=== PATIENT | female | born 1940 | race African-American/Black ===

== ENCOUNTER 2016-08-18 22:02 | Inpatient (IN) | payer MEDICARE, MEDICAID ==
[~2016-08-18] VITALS: Ht 162.6 cm; Wt 100.0 kg
[~2016-08-18 22:02] MED LIST: ALBU.5I NEB; ALEN70TA39 PO; CALC600T44 PO; CARD240C6 PO; DULE200A INH; DUONI NEB; FERR324T4 PO; FURO20 PO; GABA300C3 PO; KCL20 PO; OMEP20TA PO; OXYC1SOL5 PO; RIVA20 PO; VITA-13 PO; WALKER STANDARD; [UNRECOGNIZED DRUG - CODE] EACH EYE
[2016-08-18 22:11] VITALS: BP 112/53; PULSE 98; RESP 16; TEMP 98.2; O2SAT 89
[2016-08-18 22:52] VITALS: RESP 16; O2SAT 95
--- NOTE | 2016-08-18 23:05 | RADRPT ---
EXAM DATE/TIME: 08/18/2016 22:40 [place] COMPARISON: CHEST SINGLE AP, May 26, 2016, 14:33. INDICATIONS : Cough. MEDICAL HISTORY : Chronic obstructive pulmonary disease. Cerebrovascular disease. Hypertension. SURGICAL HISTORY : None. ENCOUNTER: Initial ACUITY: 2 days PAIN SCORE: 5/10 LOCATION: Bilateral upper chest FINDINGS: A single view of the chest demonstrates the lungs to be symmetrically aerated without evidence of mas s, infiltrate or effusion. The cardiomediastinal contours are unremarkable. Osseous structures are intact. CONCLUSION: No acute disease. Emiliano Tafoya Jr., MD on August 18, 2016 at 23:03 Board Certified Radiologist. This report was verified electronically.
[2016-08-18 23:08] LABS: ANION GAP 6 MEQ/L (5-15); AST (GOT) 99 U/L (15-37); BICARBONATE 29.2 MEQ/L (21.0-32.0); BLOOD UREA NITROGEN 10 MG/DL (7-18); CHLORIDE 104 MEQ/L (98-107); GLOMERULAR FILTRATION RATE 60 ML/MIN (>89); SODIUM (NA) 139 MEQ/L (136-145)
[2016-08-18 23:12] LABS: ALKALINE PHOSPHATASE 460 U/L (45-117); ALT (GPT) 22 U/L (10-53); HEMATOCRIT 22.6 % (35.0-46.0); MEAN CELL VOLUME 86.4 FL (80.0-100.0); MEAN CORPUSCULAR HEMOGLOBIN 28.5 PG (27.0-34.0); PLATELET COUNT 143 TH/MM3 (150-450); RED BLOOD COUNT 2.61 MIL/MM3 (4.00-5.30); RED CELL DISTRIBUTION WIDTH 17.3 % (11.6-17.2); TOTAL BILIRUBIN ADULT 2.9 MG/DL (0.2-1.0); WHITE BLOOD COUNT 8.8 TH/MM3 (4.0-11.0)
[2016-08-18 23:17] LABS: HEMO FLAGS AUTO DIFF
[2016-08-18 23:28] LABS: INTERNATIONAL NORMALIZED RATIO 1.7 RATIO; PROTHROMBIN TIME - PATIENT 19.6 SEC (9.8-11.6)
--- NOTE | 2016-08-18 23:35 | PD ---
HPI Chief Complaint: Abnormal Results Time Seen by Provider: 22:09 Travel History International Travel<30 days: No Contact w/Intl Traveler<30days: No Traveled to known affect area: No History of Present Illness HPI The patient is 75 year old female who presents to the [facility] emergency department with a history of abnormal laboratory studies noted at her local halfway earlier today. The patient was noted to have a hemoglobin of 7.1 and was sent over for evaluation and possible blood transfusion. The patient reports that she has had blood transfusions in the past. She reports that she last had a blood transfusion 3 months ago. She reports that she was previously on chemotherapy 3 months ago related to colon cancer with metastasis. The patient reports that she is currently a resident at the halfway for [facility]. She reports that she has a history of left hip fracture status post repair. The patient reports that she has shortness of breath with exertion that is chronic. The patient denies any recent fevers, cough, congestion, neck pain, chest pain, abdominal pain, vomiting, diarrhea, urinary symptoms, or neurologic symptoms. PFSH Past Medical History Narrative Medical The patient's past medical history is significant for colon cancer with metastasis, history of hyperlipidemia, COPD, DVT, history of hypertension, history of acid reflux, history of anemia. Hx Anticoagulant Therapy: Yes Arthritis: Yes (AFFECTS SHOULDERS) Asthma: Yes Autoimmune Disease: No Blood Disorders: No Anxiety: No Depression: No Heart Rhythm Problems: No Cancer: Yes (COLON CA WITH LIVER METS) Cardiovascular Problems: Yes High Cholesterol: Yes Chemotherapy: Yes (ON 05/12/16) Chest Pain: Yes Congestive Heart Failure: No COPD: Yes Cerebrovascular Accident: No Diabetes: No Diminished Hearing: No Endocrine: Yes Gastrointestinal Disorders: Yes (ACID REFLUX) GERD: Yes Glaucoma: No Genitourinary: No Headaches: No Hepatitis: No Hiatal Hernia: No Hypertension: Yes Immune Disorder: No Implanted Vascular Access Dvce: Yes (RIGHT SIDED POWER PORT) Kidney Stones: No Musculoskeletal: Yes (ARTHRITIS) Neurologic: No Psychiatric: No Reproductive: No Respiratory: Yes (COPD) Immunizations Current: No (2012 FLU/PNEUMONIA 6 YEARS "THEY WON'T GIVE IT TO ME ") Migraines: No Myocardial Infarction: No Radiation Therapy: No Renal Failure: No Seizures: No Sickle Cell Disease: No Sleep Apnea: Yes (USES CPAP @ HOME) Thyroid Disease: Yes Ulcer: No Tetanus Vaccination: < 5 Years Influenza Vaccination: No ?: Not Menopausal: Yes Past Surgical History Narrative Surgical The patient's past surgical history is significant for Blpdax-q-Mnad placement, cardiac stent placement, partial colon resection, hysterectomy Abdominal Surgery: Yes (PARTIAL HYSTERECTOMY) AICD: No Appendectomy: No Arteriovenous Shunt: No Body Medical Devices: CARDIAC STENTS Cardiac Surgery: Yes (CARDIAC CATH) Cholecystectomy: No Ear Surgery: No Endocrine Surgery: No Eye Surgery: No Genitourinary Surgery: No Gynecologic Surgery: Yes (HYSTERECTOMY;BILATERAL SALPINGO-OOPHORECTOMY) Hysterectomy: Yes Insulin Pump: No Joint Replacement: No Oral Surgery: Yes (CROWNS,WISDOM TEETH REMOVED) Pacemaker: No Thoracic Surgery: Yes Other Surgery: Yes (HAD POLYPECTOMY WITH COLONOSCOPY ) Social History Alcohol Use: Yes (WINE OCC.) Tobacco Use: No Substance Use: No Allergies-Medications (Allergen,Severity, Reaction): Coded Allergies: No Known Allergies (Unverified , 08/18/16) Reported Meds & Prescriptions Reported Meds & Active Scripts Active Reported Oxycodone-Acetaminophen 10-325 mg Tab 1 Tab PO Q4H PRN Xarelto (Rivaroxaban) 20 Mg Tab 20 Mg PO DAILY Neurontin (Gabapentin) 300 Mg Cap 300 Mg PO TID Diltiazem CD 24 HR 240 Mg Caper 240 Mg PO DAILY Potassium Chloride ER (Potassium Chloride) 20 Meq Tab 20 Meq PO DAILY Lasix (Furosemide) 20 Mg Tab 20 Mg PO BID Multivitamin Adults (Multiple Vitamins W/ Minerals) 1 Tab 1 Tab PO DAILY Zantac (Ranitidine HCl) 150 Mg Tab 150 Mg PO BID Omeprazole 20 Mg Tab 20 Mg PO DAILY Poly-Iron 150 (Polysaccharide Iron Complex) 150 Mg Cap 150 Mg PO DAILY Review of Systems Except as stated in HPI: all other systems reviewed are Neg General / Constitutional: No: Fever Eyes: No: Visual changes HENT: No: Headaches Cardiovascular: Positive: Dyspnea on exertion, No: Chest Pain or Discomfort Respiratory: Positive: Shortness of Breath Gastrointestinal: No: Abdominal Pain Genitourinary: No: Dysuria Musculoskeletal: No: Pain Skin: No Rash Neurologic: No: Weakness Psychiatric: No: Depression Endocrine: No: Polydipsia Hematologic/Lymphatic: No: Easy Bruising Physical Exam Narrative General: The patient is a well-developed well-nourished female in no acute distress. Head and Neck exam: Head is normocephalic atraumatic. Eyes: Pupils are equal round and reactive to light. Nose: Midline septum with pink mucous membranes Mouth: Dentition unremarkable. Moist mucus membranes. Posterior oropharynx is not erythematous. No tonsillar hypertrophy. Uvula midline. Airway patent. Neck: No palpable lymphadenopathy. No nuchal rigidity. No thyromegaly. Cardiovascular: Regular rate and rhythm without murmurs, gallops, or rubs. Lungs: Clear to auscultation bilaterally. No wheezes, rhonchi, or rales. Abdomen: Soft, without tenderness to palpation in all 4 quadrants of the abdomen. No guarding, rebound, or rigidity. No tenderness on palpation of McBurney's point. Normal bowel sounds are audible. Extremities: No clubbing or cyanosis. The patient has trace to 1+ pitting edema bilateral lower extremities. 2+ pulses in all 4 extremities. No calf tenderness on palpation. Back: No spinous process tenderness to palpation. No costovertebral angle tenderness to palpation. Neurologic Exam: Grossly nonfocal. Skin Exam: No rash noted. Intact skin that is warm and dry. Data Data Last Documented VS Vital Signs Date Time Temp Pulse Resp B/P Pulse Ox O2 Delivery O2 Flow Rate FiO2 08/18/16 22:52 16 95 Nasal Cannula 2 08/18/16 22:11 98.2 98 112/53 Orders Electrocardiogram (08/18/16 22:28) Complete Blood Count With Diff (08/18/16 22:28) Comprehensive Metabolic Panel (08/18/16 22:28) Prothrombin Time / Inr (Pt) (08/18/16 22:28) Act Partial Throm Time (Ptt) (08/18/16 22:28) Lipase (08/18/16 22:28) Chest, Single Ap (08/18/16 22:28) Iv Access Insert/Monitor (08/18/16 22:28) Ecg Monitoring (08/18/16 22:28) Oximetry (08/18/16 22:28) Type And Screen (08/18/16 22:28) B-Type Natriuretic Peptide (08/18/16 22:29) Admit Order (Ed Use Only) (08/19/16 00:45) Blood Product Administration .UPON TRANSFUSION (08/19/16 00:45) Sodium Chlor 0.9% 250 Ml Inj (Ns 250 Ml (08/19/16 00:45) Labs Laboratory Tests Test 08/18/16 22:40 White Blood Count 8.8 TH/MM3 Red Blood Count 2.61 MIL/MM3 Hemoglobin 7.5 GM/DL Hematocrit 22.6 % Mean Corpuscular Volume 86.4 FL Mean Corpuscular Hemoglobin 28.5 PG Mean Corpuscular Hemoglobin 33.0 % Concent Red Cell Distribution Width 17.3 % Platelet Count 143 TH/MM3 Mean Platelet Volume 8.7 FL Neutrophils (%) (Auto) % Lymphocytes (%) (Auto) % Monocytes (%) (Auto) % Eosinophils (%) (Auto) % Basophils (%) (Auto) % Neutrophils # (Auto) TH/MM3 Lymphocytes # (Auto) TH/MM3 Monocytes # (Auto) TH/MM3 Eosinophils # (Auto) TH/MM3 Basophils # (Auto) TH/MM3 CBC Comment AUTO DIFF Differential Total Cells 100 Counted Neutrophils % (Manual) 74 % Lymphocytes % 14 % Monocytes % 11 % Eosinophils % 1 % Neutrophils # (Manual) 6.5 TH/MM3 Differential Comment FINAL DIFF MANUAL Atypical Lymphocytes % Toxic Vacuolation PRESENT Platelet Estimate LOW Platelet Morphology Comment NORMAL Target Cells 1+ Prothrombin Time 19.6 SEC Prothromb Time International 1.7 RATIO Ratio Activated Partial 35.0 SEC Thromboplast Time Sodium Level 139 MEQ/L Potassium Level 4.0 MEQ/L Chloride Level 104 MEQ/L Carbon Dioxide Level 29.2 MEQ/L Anion Gap 6 MEQ/L Blood Urea Nitrogen 10 MG/DL Creatinine 1.08 MG/DL Estimat Glomerular Filtration 60 ML/MIN Rate Random Glucose 107 MG/DL Calcium Level 7.5 MG/DL Total Bilirubin 2.9 MG/DL Aspartate Amino Transf 99 U/L (AST/SGOT) Alanine Aminotransferase 22 U/L (ALT/SGPT) Alkaline Phosphatase 460 U/L B-Type Natriuretic Peptide 277 PG/ML Total Protein 6.6 GM/DL Albumin 1.4 GM/DL Lipase 129 U/L Blood Type O POSITIVE Antibody Screen NEGATIVE MDM Medical Decision Making Medical Screen Exam Complete: Yes Emergency Medical Condition: Yes Medical Record Reviewed: Yes Interpretation(s) Last Impressions Chest X-Ray 08/18/16 7250 Signed Impressions: Service Date/Time: Thursday, August 18, 2016 22:40 - CONCLUSION: No acute disease. Emiliano Tafoya Jr., MD Differential Diagnosis Symptomatic anemia, versus anemia of chronic disease, versus GI bleed Narrative Course During the course of the patients emergency department visit, the patients history, examination, and differential diagnosis were reviewed with the patient. The patient had IV access obtained and blood work sent for analysis. The patient was placed on a fittings tightener with oximetry and blood pressure monitoring. The patient was typed and screened for blood. The patients laboratory studies were reviewed and remarkable for a white count of 8.8, hemoglobin 7.5, platelets 143 with 74 neutrophils 14 lymphocytes, 11 monocytes. The patient was typed and crossmatched for 2 units of packed red blood cells. One unit will be administered. CMP is remarkable for creatinine of 1.08, glucose 107, calcium 7.5, total bilirubin 2.9, AST 99, alkaline phosphatase 460. Liver enzyme elevation is likely related to colon cancer metastasis. Albumin 1.4, lipase 129, INR 1.7 Radiology studies were reviewed and remarkable for a chest x-ray that shows no acute abnormality. The patient will be admitted to the hospital for transfusion for symptomatic anemia. The patients results were discussed with the patient, including the plan of care. I explained that further testing and/ or monitoring is indicated based on the patients history, examination, and/ or laboratory findings. Therefore, I recommended admission for additional evaluation. The patient expressed understanding and was agreeable with this plan. The patient was admitted to the hospital in stable condition and sent to a bed under the care of the [facility]. Physician Communication Physician Communication The patient's case was discussed with Óscar Mcbride who did agree to admit the patient to the [facility]. Diagnosis Primary Impression: Symptomatic anemia Admitting Information Admitting Physician Requests: Observation Aida Ramirez MD Aug 18, 2016 23:35
[2016-08-18 23:41] LABS: EOSINOPHILS 1 % (0-4); NEUTROPHIL # MANUAL DIFF 6.5 TH/MM3 (1.8-7.7); POLYS (SEG NEUTROPHILS) 74 % (16-70); SCAN/DIFF FINAL DIFF MANUAL; WBC DIFF SAMPLE 100
[2016-08-18 23:42] LABS: PLATELET ESTIMATE SMEAR LOW (NORMAL); PLATELET MORPHOLOGY NORMAL (NORMAL); TARGET CELLS 1+ (NORMAL)
[2016-08-18 23:43] LABS: TOXIC VACUOLATION PRESENT (NONE SEEN)
[2016-08-19] VITALS (16 sets, daily range): BP systolic 98–121; BP diastolic 46–60; PULSE 50–104; RESP 16–30; TEMP 97.6–98; O2SAT 95–100
[2016-08-19] MEDS ORDERED: SODIUM CHLOR 0.9% 250 ML INJ 250 ML IV ONE ×3 (00:45→03:45)
[2016-08-19] MEDS ORDERED: NALOXONE HCL 0.4 MG/ML AMP IV PRN (01:45)
[2016-08-19] MEDS ORDERED: SODIUM CHLORIDE 0.9% FLUSH 5 ML FLUSH FLUSH PRN (01:45)
[2016-08-19] MEDS ORDERED: ONDANSETRON HCL 4 MG/2 ML VIAL IVP PRN (01:45)
[2016-08-19] MEDS ORDERED: ACETAMINOPHEN 325 MG TAB PO PRN (01:45)
[2016-08-19] MEDS ORDERED: oxyCODONE/ACETAMINOPHEN 5 MG/325 MG TAB PO ONE (02:00)
[2016-08-19] MEDS ORDERED: POTA-163 PO (03:27)
[2016-08-19] MEDS ORDERED: MULT1TAB84 PO (03:27)
[2016-08-19] MEDS ORDERED: ZANT150T2 PO (03:27)
[2016-08-19] MEDS ORDERED: NU-IRON PO (03:27)
[2016-08-19] MEDS ORDERED: OMEP20TA PO (03:27)
[2016-08-19] MEDS ORDERED: DILT-64 PO (03:27)
[2016-08-19] MEDS ORDERED: NEUR300C PO (03:27)
[2016-08-19] MEDS ORDERED: FURO1TAB62 PO (03:27)
[2016-08-19] MEDS ORDERED: XARE20TA PO (03:27)
[2016-08-19] MEDS ORDERED: OXYC1TAB36 PO (03:28)
[2016-08-19] MEDS ORDERED: TEMAZEPAM 15 MG CAP PO ONE (03:30)
[2016-08-19] MEDS ORDERED: oxyCODONE/ACETAMINOPHEN 5 MG/325 MG TAB PO PRN (03:30)
[2016-08-19] MEDS: oxyCODONE/ACETAMINOPHEN 5 MG/325 MG TAB PO PRN (03:36)
[2016-08-19 04:51] LABS: FERRITIN 161 NG/ML (8-252); LDH SERUM 660 U/L (84-246); TRANSFERRIN IRON PROFILE 91 MG/DL (200-360)
--- NOTE | 2016-08-19 08:04 | HHI.HP ---
HPI Service [facility] Primary Care Physician Rachelle Hammond MD Admission Diagnosis Symptomatic anemia Diagnoses: Chief Complaint: sob, weakness (Aline Parks) Travel History International Travel<30 Days: No Contact w/Intl Traveler <30 Da: No Traveled to Known Affected Are: No (Aline Parks) History of Present Illness This is an unfortunate 75-year-old black female with significant past medical history of colon cancer with liver metastases was some palliative chemotherapy, COPD, status post fall with left hip fracture and pinning 2014, hypertension, arthritis, anemia, gastritis, DVT left leg on Xarelto. Patient was sent to the emergency room from senior living for abnormal laboratory studies done at the facility. Patient was noted with hemoglobin of 7.1 and was sent for evaluation and possible blood transfusion. Patient did receive blood transfusion when she was admitted in May after hip fracture. She has chronic anemia. Her oncologist is Dr. Turner. Also history of gastritis for which she is on omeprazole. Patient is also on Xarelto for DVT left leg. Patient is a poor historian, she is lethargic, was given Percocet for pain. She knows she is in the hospital but is not sure why she was sent here. She complains of some shortness of breath, no chest pain. She thinks she may have seen some blood in the stool. She denies any abdominal pain, no heartburn, no nausea no vomiting. There is no reported fever or chills. Review of senior living records, patient has been declining and not doing as well with physical therapy. After surgery she went to [place] [facility] and then was transferred to subacute nursing facility where she has been residing. She has not been able to resume palliative chemotherapy due to insurance issues because she is in a rehabilitation facility. Her last follow-up with Dr. Turner was in June, notes were reviewed. Liver cancer is stable per last CT results, and she is supposed to start chemotherapy after she is discharged from rehab. Patient was evaluated in the emergency room, laboratory workup was completed. Hemoglobin was 7.5, hematocrit 22.6. She is noted with low iron stones, iron is 19. Patient is on by mouth iron replacement. AST is mildly elevated which is similar to previous findings. Chest x-ray did not reveal any acute findings. Patient is in the process of receiving blood transfusion. Patient is admitted for further evaluation and treatment. (Aline Parks) Review of Systems ROS Limitations: Poor Historian Constitutional: COMPLAINS OF: Fatigue Respiratory: COMPLAINS OF: Wheezing Cardiovascular: COMPLAINS OF: Dyspnea on Exertion, Lower Extremity Edema (Aline Parks) Past Family Social History Past Medical History Metastatic colon cancer, chemo on hold due to patient being in rehab center Elevated AST DVTs COPD CAD with stent Hypertension Chronic anemia S/P fall with hip fracture, 2014 Past Surgical History Hysterectomy, port, left knee surgery S/P Left hip pinning May 21, 2016 Reported Medications Reported Meds & Active Scripts Active Reported Oxycodone-Acetaminophen 10-325 mg Tab 1 Tab PO Q4H PRN Xarelto (Rivaroxaban) 20 Mg Tab 20 Mg PO DAILY Neurontin (Gabapentin) 300 Mg Cap 300 Mg PO TID Diltiazem CD 24 HR 240 Mg Caper 240 Mg PO DAILY Potassium Chloride ER (Potassium Chloride) 20 Meq Tab 20 Meq PO DAILY Lasix (Furosemide) 20 Mg Tab 20 Mg PO BID Multivitamin Adults (Multiple Vitamins W/ Minerals) 1 Tab 1 Tab PO DAILY Zantac (Ranitidine HCl) 150 Mg Tab 150 Mg PO BID Omeprazole 20 Mg Tab 20 Mg PO DAILY Poly-Iron 150 (Polysaccharide Iron Complex) 150 Mg Cap 150 Mg PO DAILY (Aline Parks) Allergies: Coded Allergies: No Known Allergies (Unverified , 08/18/16) Active Ordered Medications Inpatient Medications Acetaminophen (Tylenol) 650 mg Q4H PRN PO TEMP > 100.4; Start 08/19/16 at 01:45 Albuterol/ Ipratropium (Duoneb Neb) 1 ampule QID NEB NEB ; Start 08/19/16 at 08: 00; Status UNV Diltiazem HCl (Cardizem Cd) 240 mg DAILY PO ; Start 08/19/16 at 09:00; Status UNV Furosemide (Lasix Inj) 20 mg ONCE ONCE IV PUSH ; Start 08/19/16 at 08:00; Stop 08/19/16 at 08:01; Status UNV IV Flush (NS Flush) 2 ml BID FLUSH ; Start 08/19/16 at 09:00 Naloxone HCl (Narcan Inj) 0.4 mg UNSCH PRN IV SEE LABEL COMMENTS; Start at 01:45 Ondansetron HCl (Zofran Inj) 4 mg Q6H PRN IVP NAUSEA OR VOMITING Last administered on 08/19/16 02:57; Start 08/19/16 at 01:45 Oxycodone/ Acetaminophen (Percocet 5-325 Mg) 2 tab Q4H PRN PO SEVERE PAIN; Start 08/19/16 at 03:30 Pantoprazole Sodium (Protonix) 20 mg DAILY PO ; Start 08/19/16 at 09:00; Status UNV Polysaccharide Iron Complex (Nu-Iron) 150 mg DAILY PO ; Start 08/19/16 at 09:00; Status UNV Potassium Chloride (KCl) 20 meq DAILY PO ; Start 08/19/16 at 09:00; Status UNV Ranitidine HCl (Zantac) 150 mg BID PO ; Start 08/19/16 at 09:00; Status UNV Sodium Chloride (NS 250 ml Inj) 250 ml @ 15 mls/hr ONCE ONCE IV Last administered on 08/19/16 05:44; Start 08/19/16 at 03:45; Stop 08/19/16 at 20:24 Temazepam 15 mg 15 mg STAT ONCE PO Last administered on 08/19/16 03:36; Start 08/19/16 at 03:30; Stop 08/19/16 at 03:31; Status DC Family History Reviewed and noncontributory Social History She used to live with her adult son. No alcohol tobacco or drug use. Smoked in the past. Has been staying in a rehab. (Aline Parks) Physical Exam Vital Signs Vital Signs Date Time Temp Pulse Resp B/P Pulse Ox O2 Delivery O2 Flow Rate FiO2 08/19/16 06:39 94 121/55 08/19/16 06:21 95 16 120/60 08/19/16 06:11 100 30 115/59 99 08/19/16 05:54 100 105/55 08/19/16 05:25 98.0 96 20 115/53 99 08/19/16 04:33 97.6 104 20 109/51 99 08/19/16 03:05 99 Nasal Cannula 2.00 08/19/16 02:24 85 16 108/56 99 Nasal Cannula 2 08/18/16 22:52 16 95 Nasal Cannula 2 08/18/16 22:25 98 Room Air 08/18/16 22:11 98.2 98 16 112/53 89 Physical Exam GENERAL: This is a well-nourished, obese, chronically ill appearing female. Lethargic SKIN: No rashes, ecchymoses or lesions. Cool and dry. HEAD: Atraumatic. Normocephalic. No temporal or scalp tenderness. EYES: Pupils equal round and reactive. Extraocular motions intact. No scleral icterus. No injection or drainage. ENT: Nose without bleeding, purulent drainage or septal hematoma. Throat without erythema, tonsillar hypertrophy or exudate. Uvula midline. Airway patent. NECK: Trachea midline. No JVD or lymphadenopathy. Supple, nontender, no meningeal signs. CARDIOVASCULAR: Regular rate and rhythm without murmurs, gallops, or rubs. RESPIRATORY: Exp. wheezes throughout. GASTROINTESTINAL: Abdomen soft, bulky, non-tender, nondistended. Bowel sounds normoactive x 4. No hepato-splenomegaly, or palpable masses. No guarding. MUSCULOSKELETAL: Extremities without clubbing, cyanosis. Has 2+ pitting edema bilat. Pedal pulses 1+ bilat. No joint tenderness, effusion, or edema noted. No calf tenderness. Negative Homans sign bilaterally. NEUROLOGICAL: Awakes to voice, oriented to self, place, not sure of situation. Following simple commands, no focal deficits. Laboratory Laboratory Tests Test 08/18/16 08/19/16 08/19/16 22:40 03:33 03:37 White Blood Count 8.8 Red Blood Count 2.61 Hemoglobin 7.5 Hematocrit 22.6 Mean Corpuscular Volume 86.4 Mean Corpuscular Hemoglobin 28.5 Mean Corpuscular Hemoglobin 33.0 Concent Red Cell Distribution Width 17.3 Platelet Count 143 Mean Platelet Volume 8.7 Neutrophils (%) (Auto) Lymphocytes (%) (Auto) Monocytes (%) (Auto) Eosinophils (%) (Auto) Basophils (%) (Auto) Neutrophils # (Auto) Lymphocytes # (Auto) Monocytes # (Auto) Eosinophils # (Auto) Basophils # (Auto) CBC Comment AUTO DIFF Differential Total Cells 100 Counted Neutrophils % (Manual) 74 Lymphocytes % 14 Monocytes % 11 Eosinophils % 1 Neutrophils # (Manual) 6.5 Differential Comment FINAL DIFF MANUAL Atypical Lymphocytes Toxic Vacuolation PRESENT Platelet Estimate LOW Platelet Morphology Comment NORMAL Target Cells 1+ Prothrombin Time 19.6 Prothromb Time International 1.7 Ratio Activated Partial 35.0 Thromboplast Time Sodium Level 139 Potassium Level 4.0 Chloride Level 104 Carbon Dioxide Level 29.2 Anion Gap 6 Blood Urea Nitrogen 10 Creatinine 1.08 Estimat Glomerular Filtration 60 Rate Random Glucose 107 Calcium Level 7.5 Total Bilirubin 2.9 Aspartate Amino Transf 99 (AST/SGOT) Alanine Aminotransferase 22 (ALT/SGPT) Alkaline Phosphatase 460 B-Type Natriuretic Peptide 277 Total Protein 6.6 Albumin 1.4 Lipase 129 Blood Type O POSITIVE Antibody Screen NEGATIVE Iron Level 19 Total Iron Binding Capacity 127 Percent Iron Saturation 14.9 Ferritin 161 Lactate Dehydrogenase 660 Folate 14.2 Crossmatch Leukocyte-Reduced Red Blood Cells Blood Bank Comment (Aline Parks) Result Diagram: 08/18/16223908/18/162239 Imaging Last Impressions Chest X-Ray 08/18/162227 Signed Impressions: Service Date/Time: Thursday, August 18, 2016 22:40 - CONCLUSION: No acute disease. Emiliano Tafoya Jr., MD (Aline Parks) Assessment and Plan Problem List: (1) Symptomatic anemia (2) Colon carcinoma metastatic to liver (3) COPD (chronic obstructive pulmonary disease) (4) SOB (shortness of breath) (5) DVT (deep venous thrombosis) (6) HTN (hypertension) Assessment and Plan Admit to Dr. Silverman 75-year-old black female with significant history of colon cancer with metastases to liver on palliative chemotherapy which is currently on hold, history of anemia and previous blood transfusions. Sent from senior living with hemoglobin of 7.1, complaining of dyspnea on exertion. -Continue with blood transfusions 1 unit, repeat H&H -Continue with oral iron replacement -Continue with omeprazole for GI prophylaxis -Consult Dr. Turner COPD with mild exacerbation -Continue with oxygen at 2 L to keep sats greater than 90 -DuoNeb's 4 times a day Chronic DVT left leg -Continue Xarelto Recent history of fall, left fracture with pinning -continue with PT HTN, stable -Resume home meds Medications reviewed, initiated as indicated Continue with Xarelto for DVT prophylaxis Continue with Omeprazole and Zantac Follow-up CBC in the morning Plan of care discussed with the patient, attending and registered nurse. Further management of the patient will be dependent on the hospital course This patient was seen by myself and Dr. Silverman, this H&P is written on his behalf (Aline Parks) Assessment and Plan Pt seen and examined as above chart reviewed including notes labs meds and rad data plan of care vanessa esteban in detail dw pt will follow (Sergio Silverman MD) Problem Qualifiers (1) COPD (chronic obstructive pulmonary disease): Qualified Code: J44.9 - Chronic obstructive pulmonary disease, unspecified COPD type (2) DVT (deep venous thrombosis): (3) HTN (hypertension): Qualified Code: I10 - Essential hypertension Aline Parks Aug 19, 2016 08:04 Sergio Silverman MD Aug 19, 2016 15:08
[2016-08-19] MEDS: RESP: ALBUTEROL 2.5 MG/IPRATROPIUM 0.5 MG NEB (SCH) NEB ×4 (08:20→21:39)
[2016-08-19] MEDS: DILTIAZEM-CD 240 MG CAP ER PO SCH (08:58)
[2016-08-19] MEDS ORDERED: FUROSEMIDE 20 MG/2 ML VIAL IV PUSH ONE (09:00)
[2016-08-19] MEDS: PANTOPRAZOLE SOD 20 MG DELAYED RELEASE TAB PO SCH (09:27)
[2016-08-19] MEDS: FAMOTIDINE 20 MG TAB PO SCH ×2 (09:27→21:30)
[2016-08-19] MEDS: POTASSIUM CHLORIDE 20 MEQ CONTROLLED RELEASE TAB PO SCH (09:27)
[2016-08-19] MEDS: SODIUM CHLORIDE 0.9% FLUSH 5 ML FLUSH FLUSH SCH ×2 (09:28→21:30)
[2016-08-19] MEDS: POLYSACCHARIDE IRON COMPLEX 150 MG CAP PO SCH (09:31)
[2016-08-19 10:31] LABS: HEMATOCRIT 26.1 % (35.0-46.0); REVIEW FLAG FINAL
--- NOTE | 2016-08-19 21:10 | MB ---
cc: DAYANNA TURNER M.D.,DENNIS MEZA M.D. DATE OF CONSULTATION 08/19/2016 DATE OF 1940 DATE OF SERVICE August 19, [address] Silverman[address] CHIEF COM[address] Silverman requested consultation for Ms. Calloway regarding metastatic colon cancer. HISTORY OF PRESENT ILLNESS Ms. Calloway is a 75-year-old woman, well-known patient to Dr. Prasanth Turner last seen by him June 23, 2016. She was initially diagnosed with colon cancer in April of 2014 and found to have liver metastatic disease. She has been on palliative chemotherapy until a fall broke her right hip. On May 21, 2016 she underwent left hip pinning by Dr. Lind. She has been discharged to the rehab facility. She reports that she still does not walk very well. She has not been back to see Dr. Turner due to insurance issues. It appears that Ms. Calloway was on FOLFOX chemotherapy, last treatment was in April. Her chemo regimen has been placed on hold. She had excellent response to FOLFOX chemotherapy. Liver lesions are decreasing in size. Her CEA venu in February to 3200. Since then her CEA has started to increase in the absence of therapy. She denies any overt symptoms related to her metastatic colon cancer. However, she is found to have new renal insufficiency and hyperbilirubinemia. She presented to the emergency room with abnormal lab results with a hemoglobin of 7.1. She was sent to the emergency room for treatment of the acute anemia. She was transfused 2 units of packed red cells. She feels better after the transfusion. Her transfusion prior to that was June 24, 2016 again another 2 units of packed red cells. She reports some bright red blood per rectum several days prior to her presentation. It is not clear if she told anyone at the [facility] facility. She reports that the bleeding is intermittent. She denies any other bleeding. No nausea, no vomiting. She reports not being able to walk well since the hip fracture. She has had history of deep vein thromboses and is on chronic anticoagulant therapy. She has bilateral leg swelling. The DVT is an nonocclusive thrombus in the left lower extremity diagnoses June 02, 2016. Hematology/Oncology is consulted for the metastatic colon cancer and new anemia. PAST MEDICAL HISTORY 1. Asthma. 2. Metastatic colon cancer. 3. Coronary artery disease status post stent placement. 4. Emphysema. 5. Hypercholesterolemia. 6. Hypertension. 7. Osteoporosis. 8. Rheumatoid arthritis. 9. Left hip fracture. 10. Left lower extremity deep vein thromboses. PAST SURGICAL HISTORY 1. Appendectomy. 2. cataract removal. 3. Coronary artery stent. 4. Hysterectomy. 5. Knee surgery. 6. Colonoscopy. 7. Left hip pinning. ALLERGIES NO KNOWN DRUG ALLERGIES. CURRENT MEDICATIONS 1. Rivaroxaban. 2. Diltiazem. 3. Protonix. 4. Nuiron. 5. Potassium chloride. 6. Pepcid. 7. DuoNeb. 8. Pepcid. 9. DuoNeb. 10. Zofran. FAMILY HISTORY Mother is with history of stomach cancer. Father is status post fall. SOCIAL HISTORY Ms. Calloway is . Worked previously as a wedding day coordinator. She is a never smoker. She drinks occasionally. Denies any illicit drug use. She lives with her son. PHYSICAL EXAMINATION VITAL SIGNS: Temperature 98.0, heart rate 104, respiratory rate 20, blood pressure 119/56, saturation 99%. GENERAL: Ms. Calloway is a well-developed, elderly woman in no acute distress, sitting upright in bed.. HEENT: Her pupils are round and reactive. She has bilateral arcus senilis. NECK: Supple with no adenopathy. LUNGS: Clear. CARDIOVASCULAR: Exam reveals mild tachycardia. ABDOMEN: Large and benign. EXTREMITIES: Lower extremity with 2+ pitting edema. LABORATORY DATA Hemoglobin 8.7. Bilirubin of 2.9. Creatinine 1.08. Ferritin 161, percent saturation 14.9. ASSESSMENT/PLAN Ms. Calloway is a 75-year-old woman with multiple medical problems. She is currently in rehab facility post left hip fracture and pinning. She reports that she does not think she would be able to manage at home by herself without any help, although her son is in good health. He does appear in her opinion to be able to take care of her. We discussed the concern for progression of her metastatic colorectal cancer. Dr. Turner is out of town. We discussed following up in the [facility] in [facility] to explore the nature of her anemia. She reports some intermittent bleeding. The iron deficiency is consistent with this. Ferritin is in the normal range which is an acute phase reactant. Percent saturation, serum iron are low. TIBC is low consistent with anemia of chronic disease. She has been anemic for many years. She has not had any chemotherapy and therefore could not be attributed to the chemo. Concerning is the increase in bilirubin. A total bilirubin is 2.9. She was previously 3.7 back in May. We checked and workup may be initiated on outpatient basis. She does not seem to be symptomatic from a mild hyperbilirubinemia. A bili profile will be obtained. LDH is significantly elevated which I suspect is related to her liver disease. Peripheral smear will be reviewed. Other cause of anemia will be explored such as hemolytic process. Both PT and PTT are prolonged which I suspect is related to the Xarelto. Ms. Calloway's questions were answered to her satisfaction. If discharged tomorrow we can coordinate follow up at [facility] for workup of the anemia, hyperbilirubinemia and progression of her metastatic colorectal cancer pending Dr. Turner's return. MD EDNE Maldonado/KK /8:04 PM /8:40 PM
[2016-08-19 22:44] LABS: INDIRECT BILIRUBIN 0.5 MG/DL (0.0-0.8); TOTAL BILIRUBIN ADULT 2.8 MG/DL (0.2-1.0)
--- NOTE | 2016-08-19 23:47 | EKG ---
Date Performed: 08/18/2016 Time Performed: 22:39:47 PTAGE: 75 years EKG: Sinus rhythm LOW QRS VOLTAGE IN PRECORDIAL LEADS POSSIBLE ANTERIOR MYOCARDIAL INFARCTION BORDERLINE ECG PREVIOUS TRACING : 03/13/2016 10.55 DOCTOR: Genevieve Nicholson Interpretating Date/Time 08/19/2016 23:42:21
[2016-08-20 04:15] VITALS: BP 112/57; PULSE 104; RESP 20; TEMP 98.2; O2SAT 100
[2016-08-20] MEDS: oxyCODONE/ACETAMINOPHEN 5 MG/325 MG TAB PO PRN ×2 (05:59→15:33)
[2016-08-20 07:08] LABS: HEMATOCRIT 26.5 % (35.0-46.0); MEAN CELL VOLUME 85.7 FL (80.0-100.0); MEAN CORPUSCULAR HEMOGLOBIN 28.4 PG (27.0-34.0); MEAN CORPUSCULAR HGB CONC 33.1 % (32.0-36.0); PLATELET COUNT 139 TH/MM3 (150-450); RED BLOOD COUNT 3.09 MIL/MM3 (4.00-5.30); RED CELL DISTRIBUTION WIDTH 17.3 % (11.6-17.2); WHITE BLOOD COUNT 9.9 TH/MM3 (4.0-11.0)
[2016-08-20 07:10] LABS: RETIC % 2.3 % (0.4-3.0); REVIEW FLAG FINAL
[2016-08-20 07:11] LABS: BICARBONATE 28.3 MEQ/L (21.0-32.0); POTASSIUM 4.1 MEQ/L (3.5-5.1)
[2016-08-20 07:17] LABS: HEMO FLAGS AUTO DIFF
--- NOTE | 2016-08-20 07:34 | HHI.DCPOC ---
Discharge Care Plan Diagnosis: (1) Symptomatic anemia Your Health Problems Are: Chest Pain Shortness of Breath Goals to Promote Your Health * To prevent worsening of your condition and complications * To maintain your health at the optimal level Directions to Meet Your Goals Take your medications as prescribed Follow your dietary instruction Follow activity as directed Keep your appointments as scheduled Take your immunizations and boosters as scheduled If your symptoms worsen call your PCP, if no PCP go to Urgent Care Center or Emergency Room Smoking is Dangerous to Your Health. Avoid second hand smoke Call the 24-hour hour crisis hotline for domestic abuse at Aline Parks. SNAP ATTACHER Aug 20, 2016 07:34
[2016-08-20 07:35] VITALS: O2SAT 95
[2016-08-20] MEDS: RESP: ALBUTEROL 2.5 MG/IPRATROPIUM 0.5 MG NEB (SCH) NEB ×5 (07:35→20:01)
[2016-08-20 08:00] VITALS: BP 104/52; PULSE 106; RESP 18; TEMP 97.5; O2SAT 96
--- NOTE | 2016-08-20 08:17 | PD.ONC.PN ---
Subjective Subjective Remarks Pt trying to call her in AM doesn't remember number- [phone] Denies any pain. Denies any bleeding. Objective Data Date Time Temp Pulse Resp B/P Pulse Ox O2 Delivery O2 Flow Rate FiO2 08/20/16 07:35 95 Nasal Cannula 2.00 08/20/16 04:15 98.2 104 20 112/57 100 08/19/16 23:53 97.9 104 20 120/58 100 08/19/16 21:40 99 Nasal Cannula 2.00 08/19/16 19:46 98.0 104 20 119/56 99 08/19/16 15:43 98.0 94 20 120/58 95 08/19/16 12:10 97.9 92 18 118/58 95 08/19/16 10:54 99 Nasal Cannula 3.00 08/19/16 09:01 97.6 94 16 111/58 98 08/19/16 08:54 50 98/46 Result Diagram: 08/20/16 0615 08/20/16 0615 Laboratory Results Laboratory Tests Test 08/19/16 08/20/16 10:10 06:15 Hemoglobin 8.7 GM/DL 8.8 GM/DL Hematocrit 26.1 % 26.5 % White Blood Count 9.9 TH/MM3 Red Blood Count 3.09 MIL/MM3 Mean Corpuscular Volume 85.7 FL Mean Corpuscular Hemoglobin 28.4 PG Mean Corpuscular Hemoglobin 33.1 % Concent Red Cell Distribution Width 17.3 % Platelet Count 139 TH/MM3 Mean Platelet Volume 8.7 FL Neutrophils (%) (Auto) % Lymphocytes (%) (Auto) % Monocytes (%) (Auto) % Eosinophils (%) (Auto) % Basophils (%) (Auto) % Neutrophils # (Auto) TH/MM3 Lymphocytes # (Auto) TH/MM3 Monocytes # (Auto) TH/MM3 Eosinophils # (Auto) TH/MM3 Basophils # (Auto) TH/MM3 CBC Comment AUTO DIFF Reticulocyte Count 2.3 % Absolute Reticulocyte Count 71.1 MIL/L Haptoglobin 137 MG/DL Sodium Level 140 MEQ/L Potassium Level 4.1 MEQ/L Chloride Level 104 MEQ/L Carbon Dioxide Level 28.3 MEQ/L Anion Gap 8 MEQ/L Blood Urea Nitrogen 10 MG/DL Creatinine 0.84 MG/DL Estimat Glomerular Filtration 80 ML/MIN Rate Random Glucose 69 MG/DL Calcium Level 8.1 MG/DL Blood Type O POSITIVE Direct Antiglobulin Test NEGATIVE (Kory) Administered Medications Medications (Trade) Dose Ordered Sig/Tamar Route PRN Reason Start Time Stop Time Status Last Admin Dose Admin IV Flush (NS Flush) 2 ml BID FLUSH 08/19/16 09:00 08/19/16 21:30 Ondansetron HCl (Zofran Inj) 4 mg Q6H PRN IVP NAUSEA OR VOMITING 08/19/16 01:45 08/19/16 02:57 Oxycodone/ Acetaminophen (Percocet 5-325 Mg) 1 tab Q4H PRN PO MODERATE PAIN 08/19/16 03:30 08/20/16 05:59 Pantoprazole Sodium (Protonix) 20 mg DAILY PO 08/19/16 09:00 08/19/16 09:27 Polysaccharide Iron Complex (Nu-Iron) 150 mg DAILY PO 08/19/16 09:00 08/19/16 09:31 Potassium Chloride (KCl) 20 meq DAILY PO 08/19/16 09:00 08/19/16 09:27 Famotidine (Pepcid) 20 mg BID PO 08/19/16 09:00 08/19/16 21:30 Objective Remarks GENERAL: Well-nourished, elderly, well-developed patient. SKIN: Warm and dry. HEAD: Normocephalic. EYES: No scleral icterus. No injection or drainage. NECK: Supple, trachea midline. No JVD or lymphadenopathy. LYMPHATIC: No adenopathy. CARDIOVASCULAR: Regular rate and rhythm without murmurs. RESPIRATORY: Breath sounds equal bilaterally. No accessory muscle use. GASTROINTESTINAL: Abdomen protrude soft, enlarged liver, non-tender, nondistended. EXTREMITIES: No cyanosis, or 1+ edema. MUSCULOSKELETAL: Adequate muscle tone. Assessment/Plan Problem List: (1) Metastatic colon cancer to liver Status: Chronic Plan: Dx 2013, responded to chemo, palliative treatment delayed after hip fracture and transfer to rehab SNF. Pt admitted for severe anemia, responded to transfusion. Noted signs of progression, increase bilirubin, large liver, decrease KPS- reports she doesn't walk well, unable to manage at home herself. Discussed fu in [facility] for supportive treatment, check cbc and transfuse support, coordinate restaging plan to resume palliative treatment as pt desire. Anemia w/o sign of hemolysis. Concern about GI loss iron/blood. Assessment 75y/o woman with multiple medical problem, known to have metastatic colorectal cancer with metastatic disease to liver. Admitted for symptomatic anemia s/p transfusion. No sign of bleeding. Hgb improve. Plan 1. Pt need fu at [facility] for restaging, treatment, supportive transfusion. 2. Continue workup to to evaluate source of iron/blood loss as out pt. no overt bleeding observed. 3. Ok to DC to rehab from heme/onc perspective. 4. FU with Dr. Turner or myself next week. Nancy Garcia MD Aug 20, 2016 08:17
[2016-08-20] MEDS: DILTIAZEM-CD 240 MG CAP ER PO SCH (08:58)
--- NOTE | 2016-08-20 08:58 | HHI.PR ---
Subjective Remarks more awake today, oriented x 3 mild wheezing today states she feels better received PRBC yesterday no fever ok with going back to rehab, will f/u with Dr. Turner Objective Objective Results - Vital Signs Date Time Temp Pulse Resp B/P Pulse Ox O2 Delivery O2 Flow Rate FiO2 08/20/16 08:00 97.5 106 18 104/52 96 08/20/16 07:35 95 Nasal Cannula 2.00 08/20/16 04:15 98.2 104 20 112/57 100 08/19/16 23:53 97.9 104 20 120/58 100 08/19/16 21:40 99 Nasal Cannula 2.00 08/19/16 19:46 98.0 104 20 119/56 99 08/19/16 15:43 98.0 94 20 120/58 95 08/19/16 12:10 97.9 92 18 118/58 95 08/19/16 10:54 99 Nasal Cannula 3.00 08/19/16 09:01 97.6 94 16 111/58 98 08/19/16 08:54 50 98/46 I/O 08/19/16 08/19/16 08/19/16 08/20/16 08/20/16 08/20/16 07:00 15:00 23:00 07:00 15:00 23:00 Output Total 150 ml Balance -150 ml Output Urine Total 150 ml # Bowel Movements 1 Result Diagram: 08/20/16 0615 08/20/16 0615 Imaging Last Impressions Chest X-Ray 08/18/168 Signed Impressions: Service Date/Time: Thursday, August 18, 2016 22:40 - CONCLUSION: No acute disease. Emiliano Tafoya Jr., MD Other Results Laboratory Tests Test 08/19/16 08/20/16 10:10 06:15 Hemoglobin 8.7 8.8 Hematocrit 26.1 26.5 White Blood Count 9.9 Red Blood Count 3.09 Mean Corpuscular Volume 85.7 Mean Corpuscular Hemoglobin 28.4 Mean Corpuscular Hemoglobin 33.1 Concent Red Cell Distribution Width 17.3 Platelet Count 139 Mean Platelet Volume 8.7 Neutrophils (%) (Auto) Lymphocytes (%) (Auto) Monocytes (%) (Auto) Eosinophils (%) (Auto) Basophils (%) (Auto) Neutrophils # (Auto) Lymphocytes # (Auto) Monocytes # (Auto) Eosinophils # (Auto) Basophils # (Auto) CBC Comment AUTO DIFF Reticulocyte Count 2.3 Absolute Reticulocyte Count 71.1 Haptoglobin 137 Sodium Level 140 Potassium Level 4.1 Chloride Level 104 Carbon Dioxide Level 28.3 Anion Gap 8 Blood Urea Nitrogen 10 Creatinine 0.84 Estimat Glomerular Filtration 80 Rate Random Glucose 69 Calcium Level 8.1 Blood Type O POSITIVE Direct Antiglobulin Test NEGATIVE (Kory) ROS Cardiac: Edema Pulmonary: SOB, Wheezing Physical Exam Physical Exam GENERAL: This is a well-nourished, obese, chronically ill appearing female. Lethargic SKIN: No rashes, ecchymoses or lesions. Cool and dry. HEAD: Atraumatic. Normocephalic. No temporal or scalp tenderness. EYES: Pupils equal round and reactive. Extraocular motions intact. No scleral icterus. No injection or drainage. ENT: Nose without bleeding, purulent drainage or septal hematoma. Throat without erythema, tonsillar hypertrophy or exudate. Uvula midline. Airway patent. NECK: Trachea midline. No JVD or lymphadenopathy. Supple, nontender, no meningeal signs. CARDIOVASCULAR: Regular rate and rhythm without murmurs, gallops, or rubs. RESPIRATORY: Less exp. wheezes GASTROINTESTINAL: Abdomen soft, bulky, non-tender, nondistended. Bowel sounds normoactive x 4. No hepato-splenomegaly, or palpable masses. No guarding. MUSCULOSKELETAL: Extremities without clubbing, cyanosis. Has 2+ pitting edema bilat. Pedal pulses 1+ bilat. No joint tenderness, effusion, or edema noted. No calf tenderness. Negative Homans sign bilaterally. NEUROLOGICAL:Awake, oriented x 3, more alert, speech clear, no focal deficits A/P Diagnosis: (1) Symptomatic anemia (2) Colon carcinoma metastatic to liver (3) COPD (chronic obstructive pulmonary disease) (4) SOB (shortness of breath) (5) DVT (deep venous thrombosis) (6) HTN (hypertension) Assessment and Plan 75-year-old black female with significant history of colon cancer with metastases to liver on palliative chemotherapy which is currently on hold, history of anemia and previous blood transfusions. Sent from alf with hemoglobin of 7.1, complaining of dyspnea on exertion. -Continue with blood transfusions 1 unit 08/19/16, HH today 8.8/26.5 -Continue with oral iron replacement -Continue with omeprazole for GI prophylaxis -Pt. seen by Dr. Garcia covering for Dr. Turner ok for dc. Recommends OP work up for anemia, ? hemolytic anemia, T bili up (pt. asymptomatic. Poss GI loss. Cleared pt for discharge COPD with mild exacerbation-improved today. -Continue with oxygen at 2 L to keep sats greater than 90 -DuoNeb's 4 times a day-continue at SNF Chronic DVT left leg -Continue Xarelto Recent history of fall, left fracture with pinning -continue with PT HTN, stable -Resume home meds Tachycardia -Cardizem held 08/19 due to marginal BP. BP okay today, d/w RN to give. Will evaluate HR this afternoon for poss. discharge Continue with Xarelto for DVT prophylaxis Continue with Omeprazole and Zantac Overall improved, needs to f/u Heme, poss. GI for OP work up Will f/u on HR for poss dc D/W RN D/W Dr. Silverman D/W pt This patient was seen by myself and Dr. Silverman, this note is written on his behalf Problem Qualifiers (1) COPD (chronic obstructive pulmonary disease): Qualified Code: J44.9 - Chronic obstructive pulmonary disease, unspecified COPD type (2) DVT (deep venous thrombosis): (3) HTN (hypertension): Qualified Code: I10 - Essential hypertension Aline Parks Aug 20, 2016 08:58
[2016-08-20] MEDS ORDERED: IPRASOL NEB (08:59)
[2016-08-20] MEDS: PANTOPRAZOLE SOD 20 MG DELAYED RELEASE TAB PO SCH (08:59)
[2016-08-20 09:00] LABS: BANDS 6 % (0-6); EOSINOPHILS 1 % (0-4); NEUTROPHIL # MANUAL DIFF 8.6 TH/MM3 (1.8-7.7); PLATELET ESTIMATE SMEAR LOW (NORMAL); PLATELET MORPHOLOGY NORMAL (NORMAL); POLYS (SEG NEUTROPHILS) 81 % (16-70); SCAN/DIFF FINAL DIFF MANUAL; TARGET CELLS 1+ (NORMAL); WBC DIFF SAMPLE 100
[2016-08-20] MEDS: POTASSIUM CHLORIDE 20 MEQ CONTROLLED RELEASE TAB PO SCH (09:00)
[2016-08-20] MEDS: SODIUM CHLORIDE 0.9% FLUSH 5 ML FLUSH FLUSH SCH ×2 (09:00→21:11)
[2016-08-20] MEDS: CHOLECALCIFEROL (VIT D3) 1000 UNIT TAB PO SCH (09:00)
[2016-08-20] MEDS: RIVAROXABAN 20 MG TAB PO SCH (09:01)
[2016-08-20] MEDS: FAMOTIDINE 20 MG TAB PO SCH (09:01)
[2016-08-20] MEDS: POLYSACCHARIDE IRON COMPLEX 150 MG CAP PO SCH (09:01)
[2016-08-20] MEDS ORDERED: OXYC1TAB36 PO (09:15)
[2016-08-20 12:00] VITALS: BP 102/54; PULSE 109; RESP 18; TEMP 96.3; O2SAT 98
[2016-08-20 16:00] VITALS: BP 109/55; PULSE 101; RESP 18; TEMP 97.2; O2SAT 98
[2016-08-20] MEDS ORDERED: DIATRIZOATE MEGLUM/DIATRIZOATE SOD 9 ML CUP PO SCH (21:15)
[2016-08-20] MEDS ORDERED: IOHEXOL 350 MG/ML 10 ML VIAL (for RAD DIAG) IV ONE (23:59)
[2016-08-21 00:15] VITALS: BP 120/56; PULSE 91; RESP 20; TEMP 98.5; O2SAT 96
--- NOTE | 2016-08-21 00:17 | RADRPT ---
EXAM DATE/TIME: 08/20/2016 23:52 [facility] COMPARISON: CT ABDOMEN & PELVIS W CONTRAST, March 13, 2016, 12:29. INDICATIONS : Abdominal pain and low HGB, history of metastatic colon cancer IV CONTRAST: 94 cc Omnipaque 350 (iohexol) IV ORAL CONTRAST: Partial prescribed oral contrast ingested. RADIATION DOSE: 21.01 CTDIvol (mGy) MEDICAL HISTORY : Cardiovascular disease. Hypertension. Chronic obstructive pulmonary disease.colon cancer, liver mets GERD SURGICAL HISTORY : Hysterectomy. Cholecystectomy. ENCOUNTER: Initial ACUITY: 1 day PAIN SCALE: 6/10 LOCATION: abdomen TECHNIQUE: Volumetric scanning of the abdomen and pelvis was performed. Using automated exposure control and ad justment of the mA and/or kV according to patient size, radiation dose was kept as low as reasonably achievable to obtain optimal diagnostic quality images. FINDINGS: LOWER LUNGS: Images of the lung bases reveal small bilateral pleural effusions which are new from the prior study. Multiple small pulmonary nodules are seen some of which are new and others which are larger from the prior study consistent with metastatic disease. For example the 2 nodules on the prior study it luiza ured 6 mm and 8 mm respectively now measure 12 mm and 18 mm. LIVER: The liver is markedly abnormal. There is a lobulated contour and diffuse heterogeneity. Innumerable l ow-density masses are seen consistent with widespread metastatic involvement. This has progressed con siderably from the prior study. No ductal dilatation. Portal vein is patent. A recannulated periumbil ical vein noted. SPLEEN: Normal size without lesion. PANCREAS: Within normal limits. KIDNEYS: Normal in size and shape. There is no mass, stone or hydronephrosis. Stable bilateral renal cysts. ADRENAL GLANDS: Within normal limits. VASCULAR: There is no aortic aneurysm. An IVC filter noted. BOWEL/MESENTERY: A moderate amount of ascitic fluid is seen. This is a new finding. The stomach, small bowel, and colo n demonstrate no acute abnormality. There is no free intraperitoneal air. Scattered colonic divertic demian. ABDOMINAL WALL: Within normal limits. RETROPERITONEUM: There is no lymphadenopathy. BLADDER: No wall thickening or mass. REPRODUCTIVE: Within normal limits. INGUINAL: There is no lymphadenopathy or hernia. MUSCULOSKELETAL: Within normal limits for patient age. Femoral neck screws noted on the left. Old right-sided rib frac tures. CONCLUSION: 1. Progression in the patient's metastatic disease when compared to the prior study. Several new pulm onary nodules are seen within the lung bases as well as enlargement of the previously seen nodules. T he metastatic disease to the liver has progressed significantly and now with widespread disease throu ghout the liver. 2. Moderate amount of ascites which is a new finding. 3. Tiny bilateral pleural effusions which are a new finding. 4. Cirrhosis. Emiliano Tafoya Jr., MD on August 21, 2016 at 0:07 Board Certified Radiologist. This report was verified electronically.
[2016-08-21 03:59] VITALS: BP 112/56; PULSE 94; RESP 20; TEMP 98.3; O2SAT 99
--- NOTE | 2016-08-21 08:49 | HHI.PR ---
Subjective Remarks awake, alert oriented x 3 discharge held yesterday, heme + stools evaluated per Dr. Taylor, spoke to pt this morning, recommends hospice per CT abd done yesterday pt. agreeable with hospice, wants to talk to son and fiance no cp no sob abd. distended, bulky, mildly tender no fever Objective Objective Results - Vital Signs Date Time Temp Pulse Resp B/P Pulse Ox O2 Delivery O2 Flow Rate FiO2 08/21/16 03:59 98.3 94 20 112/56 99 08/21/16 00:15 98.5 91 20 120/56 96 08/20/16 21:13 16 08/20/16 16:00 97.2 101 18 109/55 98 08/20/16 12:00 96.3 109 18 102/54 98 I/O 08/20/16 08/20/16 08/20/16 08/21/16 08/21/16 08/21/16 06:59 14:59 22:59 06:59 14:59 22:59 Intake Total 900 ml Output Total 900 ml Balance 0 ml Intake Oral 900 ml Output Urine Total 900 ml # Bowel Movements 1 1 Result Diagram: 08/20/16 0615 08/20/16 0615 Imaging Last Impressions Chest X-Ray 08/18/168 Signed Impressions: Service Date/Time: Thursday, August 18, 2016 22:40 - CONCLUSION: No acute disease. Emiliano Tafoya Jr., MD Other Results Date/Time Procedure Status Source Growth 08/20/16 11:55 Stool Occult Blood (ERIN) - Final Complete Stool Stool HEMOCCULT POSITIVE ROS Pulmonary: Wheezing GI: Abdominal Pain Physical Exam Physical Exam GENERAL: This is a well-nourished, obese, chronically ill appearing female. Lethargic SKIN: No rashes, ecchymoses or lesions. Cool and dry. HEAD: Atraumatic. Normocephalic. No temporal or scalp tenderness. EYES: Pupils equal round and reactive. Extraocular motions intact. No scleral icterus. No injection or drainage. ENT: Nose without bleeding, purulent drainage or septal hematoma. Throat without erythema, tonsillar hypertrophy or exudate. Uvula midline. Airway patent. NECK: Trachea midline. No JVD or lymphadenopathy. Supple, nontender, no meningeal signs. CARDIOVASCULAR: Regular rate and rhythm without murmurs, gallops, or rubs. RESPIRATORY: Less exp. wheezes GASTROINTESTINAL: Abdomen soft, bulky, non-tender, nondistended. Bowel sounds normoactive x 4. No hepato-splenomegaly, or palpable masses. No guarding. MUSCULOSKELETAL: Extremities without clubbing, cyanosis. Has 2+ pitting edema bilat. Pedal pulses 1+ bilat. No joint tenderness, effusion, or edema noted. No calf tenderness. Negative Homans sign bilaterally. NEUROLOGICAL:Awake, oriented x 3, more alert, speech clear, no focal deficits Urinary Catheter: No Vascular Central Line Catheter: No A/P Diagnosis: (1) Symptomatic anemia (2) Colon carcinoma metastatic to liver (3) COPD (chronic obstructive pulmonary disease) (4) SOB (shortness of breath) (5) DVT (deep venous thrombosis) (6) HTN (hypertension) Assessment and Plan 75-year-old black female with significant history of colon cancer with metastases to liver on palliative chemotherapy which is currently on hold, history of anemia and previous blood transfusions. Sent from alf with hemoglobin of 7.1, complaining of dyspnea on exertion. -Continue with blood transfusions 1 unit 08/19/16, HH today 8.8/26.5 -Continue with oral iron replacement -Continue with omeprazole for GI prophylaxis -Pt. seen by Dr. Garcia covering for bismark Anderson for dc. Recommends OP work up for anemia, ? hemolytic anemia, T bili up (pt. asymptomatic. Poss GI loss. Cleared pt for discharge -DC held yesterday, heme + stools. Consulted Dr. Taylor. Dr. Taylor evaluated, CT abd done, results showed worsening progression of metastatic disease. No further recommendations for work up or treatment. Spoke to pt this morning and recommends hospice, pt. agreeable. COPD with mild exacerbation-improved today. -Continue with oxygen at 2 L to keep sats greater than 90 -DuoNeb's 4 times a day-continue at [facility] Chronic DVT left leg -Continue Xarelto Recent history of fall, left fracture with pinning -continue with PT HTN, stable -Resume home meds Tachycardia -Cardizem held 08/19 due to marginal BP. BP okay today, d/w RN to give. Will evaluate HR this afternoon for poss. discharge Continue with Xarelto for DVT prophylaxis Continue with Omeprazole and Zantac Consult hospice for evaluation, pt. agreeable. Considering hospice care center if able to go. Discharge after hospice evaluates D/W RN D/W Dr. Silverman D/W pt D/W SAE Adamson This patient was seen by myself and Dr. Silverman, this note is written on his behalf Problem Qualifiers (1) COPD (chronic obstructive pulmonary disease): Qualified Code: J44.9 - Chronic obstructive pulmonary disease, unspecified COPD type (2) DVT (deep venous thrombosis): (3) HTN (hypertension): Qualified Code: I10 - Essential hypertension Aline Parks Aug 21, 2016 08:49
[2016-08-21] MEDS: SODIUM CHLORIDE 0.9% FLUSH 5 ML FLUSH FLUSH SCH (09:00)
[2016-08-21] MEDS ORDERED: PANTOPRAZOLE SOD 20 MG DELAYED RELEASE TAB PO SCH (09:00)
[2016-08-21 09:32] VITALS: BP 116/59; PULSE 96; RESP 20; TEMP 97.4; O2SAT 95
[2016-08-21] MEDS: RESP: ALBUTEROL 2.5 MG/IPRATROPIUM 0.5 MG NEB (SCH) NEB ×2 (09:53→12:52)
[2016-08-21 09:55] VITALS: O2SAT 94
[2016-08-21] MEDS: CHOLECALCIFEROL (VIT D3) 1000 UNIT TAB PO SCH (10:52)
[2016-08-21] MEDS: RIVAROXABAN 20 MG TAB PO SCH (10:52)
[2016-08-21] MEDS: POTASSIUM CHLORIDE 20 MEQ CONTROLLED RELEASE TAB PO SCH (10:52)
[2016-08-21] MEDS: DILTIAZEM-CD 240 MG CAP ER PO SCH (10:52)
[2016-08-21] MEDS: POLYSACCHARIDE IRON COMPLEX 150 MG CAP PO SCH (10:53)
--- NOTE | 2016-08-21 11:31 | HHI.DS ---
Discharge Summary Admission Date Aug 20, 2016 at 15:20 Admitting Diagnosis Symptomatic anemia (1) Symptomatic anemia Diagnosis: Principal (2) Colon carcinoma metastatic to liver Diagnosis: Principal (3) COPD (chronic obstructive pulmonary disease) Diagnosis: Principal (4) SOB (shortness of breath) Diagnosis: Principal (5) DVT (deep venous thrombosis) Diagnosis: Principal (6) HTN (hypertension) Diagnosis: Principal Brief History This is an unfortunate 75-year-old black female with significant past medical history of colon cancer with liver metastases was some palliative chemotherapy, COPD, status post fall with left hip fracture and pinning 2014, hypertension, arthritis, anemia, gastritis, DVT left leg on Xarelto. Patient was sent to the emergency room from [facility] for abnormal laboratory studies done at the facility. Patient was noted with hemoglobin of 7.1 and was sent for evaluation and possible blood transfusion. Patient did receive blood transfusion when she was admitted in May after hip fracture. She has chronic anemia. Her oncologist is Dr. Turner. Also history of gastritis for which she is on omeprazole. Patient is also on Xarelto for DVT left leg. Patient was evaluated in the emergency room, laboratory workup was completed. Hemoglobin was 7.5, hematocrit 22.6. She is noted with low iron stones, iron is 19. Patient is on by mouth iron replacement. AST is mildly elevated which is similar to previous findings. Chest x-ray did not reveal any acute findings. Patient is in the process of receiving blood transfusion. Patient was given blood transfusion. Patient has a positive Hemoccult test. Patient was followed by Dr. Garcia oncologist. As per [facility]ology [facility]. Patient was seen by Dr. Felipe her colorectal surgeon. CT scan of the abdomen was done. Shows extensive disease. He recommended hospice. Patient is agreeable for hospice. Once seen by hospice lactic discharge back to her facility. CBC/BMP: 08/20/16 0615 08/20/16 0615 Significant Findings Laboratory Tests Test 08/18/16 08/19/16 08/19/16 08/20/16 22:40 03:33 10:10 06:15 Red Blood Count 2.61 MIL/MM3 3.09 MIL/MM3 (4.00-5.30) (4.00-5.30) Hemoglobin 7.5 GM/DL 8.7 GM/DL 8.8 GM/DL (11.6-15.3) (11.6-15.3) (11.6-15.3) Hematocrit 22.6 % 26.1 % 26.5 % (35.0-46.0) (35.0-46.0) (35.0-46.0) Red Cell Distribution Width 17.3 % 17.3 % (11.6-17.2) (11.6-17.2) Platelet Count 143 TH/MM3 139 TH/MM3 (150-450) (150-450) Neutrophils % (Manual) 74 % (16-70) 81 % (16-70) Monocytes % 11 % (0-8) Toxic Vacuolation PRESENT (NONE SEEN) Platelet Estimate LOW (NORMAL) LOW (NORMAL) Target Cells 1+ (NORMAL) 1+ (NORMAL) Prothrombin Time 19.6 SEC (9.8-11.6) Activated Partial 35.0 SEC Thromboplast Time (24.3-30.1) Creatinine 1.08 MG/DL (0.50-1.00) Estimat Glomerular Filtration 60 ML/MIN (>89) 80 ML/MIN (>89) Rate Random Glucose 107 MG/DL 69 MG/DL (74-106) (74-106) Calcium Level 7.5 MG/DL 8.1 MG/DL (8.5-10.1) (8.5-10.1) Total Bilirubin 2.9 MG/DL 2.8 MG/DL (0.2-1.0) (0.2-1.0) Aspartate Amino Transf 99 U/L (15-37) (AST/SGOT) Alkaline Phosphatase 460 U/L (45-117) B-Type Natriuretic Peptide 277 PG/ML (0-100) Albumin 1.4 GM/DL (3.4-5.0) Direct Bilirubin 2.3 MG/DL (0.0-0.2) Iron Level 19 MCG/DL (50-170) Total Iron Binding Capacity 127 MCG/DL (250-450) Percent Iron Saturation 14.9 % (20-50) Lactate Dehydrogenase 660 U/L (84-246) Vitamin B12 Level GREATER THAN 2000 PG/ML (193-986) Lymphocytes % 8 % (9-44) Neutrophils # (Manual) 8.6 TH/MM3 (1.8-7.7) Pt Condition on Discharge: Stable Discharge Instructions DIET: Follow Instructions for: Heart Healthy Diet Activities you can perform: Weight Bearing as Pierre Follow up Referrals: Gastroenterology - [address] TURNER PCP Follow-up New Medications: Ipratropium-Albuterol Neb (Duoneb) 0.5-2.5 Mg/3 Ml Neb 1 AMPULE NEB QID NEB Broncospasm Days 30 Ref 0 ML Continued Medications: Diltiazem CD 24 HR (Diltiazem CD 24 HR) 240 Mg Caper 240 MG PO DAILY #30 Ref 0 CAP Furosemide (Lasix) 20 Mg Tab 20 MG PO BID #60 Ref 0 TAB Gabapentin (Neurontin) 300 Mg Cap 300 MG PO TID #90 Ref 0 CAP Multiple Vitamins W/ Minerals (Multivitamin Adults) 1 Tab 1 TAB PO DAILY Nutritional Supplement Ref 0 TAB Omeprazole (Omeprazole) 20 Mg Tab 20 MG PO DAILY #30 Ref 0 TAB Oxycodone-Acetaminophen (Oxycodone-Acetaminophen) 10-325 mg Tab 1 TAB PO Q4H PRN PAIN #12 Ref 0 TAB (This prescription has been renewed) Polysaccharide Iron Complex (Poly-Iron 150) 150 Mg Cap 150 MG PO DAILY Nutritional Supplement #30 Ref 0 CAP Potassium Chloride ER (Potassium Chloride ER) 20 Meq Tab 20 MEQ PO DAILY Electrolyte Replacement #30 Ref 0 TAB Ranitidine (Zantac) 150 Mg Tab 150 MG PO BID Reduce Stomach Acid #60 Ref 0 TAB Rivaroxaban (Xarelto) 20 Mg Tab 20 MG PO DAILY Blood Clot Prevention Ref 0 TAB Sergio Silverman MD Aug 21, 2016 11:31
--- NOTE | 2016-08-21 11:56 | PD.ONC.PN ---
Subjective Subjective Remarks Afebrile overnight. patient resting comfortably. She is without complaint. She discussed wanting to speak with hospice. She thinks she would like to be enrolled in hospice. Objective Data Date Time Temp Pulse Resp B/P Pulse Ox O2 Delivery O2 Flow Rate FiO2 08/21/16 09:55 94 21 08/21/16 09:32 97.4 96 20 116/59 95 08/21/16 03:59 98.3 94 20 112/56 99 08/21/16 00:15 98.5 91 20 120/56 96 08/20/16 21:13 16 08/20/16 16:00 97.2 101 18 109/55 98 08/20/16 12:00 96.3 109 18 102/54 98 Result Diagram: 08/20/1615 08/20/16 0615 Culture Results Microbiology Date/Time Procedure Status Source Growth 08/20/16 11:55 Stool Occult Blood (ERIN) - Final Complete Stool Stool HEMOCCULT POSITIVE Administered Medications Medications (Trade) Dose Ordered Sig/Tamar Route PRN Reason Start Time Stop Time Status Last Admin Dose Admin IV Flush (NS Flush) 2 ml BID FLUSH 08/19/16 09:00 08/20/16 21:11 Ondansetron HCl (Zofran Inj) 4 mg Q6H PRN IVP NAUSEA OR VOMITING 08/19/16 01:45 08/19/16 02:57 Oxycodone/ Acetaminophen (Percocet 5-325 Mg) 1 tab Q4H PRN PO MODERATE PAIN 08/19/16 03:30 08/20/16 15:33 Diltiazem HCl (Cardizem Cd) 240 mg DAILY PO 08/19/16 09:00 08/21/16 10:52 Polysaccharide Iron Complex (Nu-Iron) 150 mg DAILY PO 08/19/16 09:00 08/21/16 10:53 Potassium Chloride (KCl) 20 meq DAILY PO 08/19/16 09:00 08/21/16 10:52 Rivaroxaban (Xarelto) 20 mg DAILY PO 08/20/16 09:00 08/21/16 10:52 Cholecalciferol (Vitamin D3) 1,000 units DAILY PO 08/20/16 09:00 08/21/16 10:52 Pantoprazole Sodium (Protonix) 40 mg DAILY PO 08/21/16 09:00 1/5/17 10:52 Objective Remarks GENERAL: Elderly female, sitting up in bed in nad. SKIN: Warm and dry. HEAD: Normocephalic. EYES: No scleral icterus. No injection or drainage. NECK: Supple, trachea midline. CARDIOVASCULAR: +S1/S2 RESPIRATORY: Breath sounds equal bilaterally. No accessory muscle use. GASTROINTESTINAL: Abdomen soft, non-tender, nondistended. EXTREMITIES: No cyanosis NEUROLOGICAL: No obvious focal deficit. Awake, alert, and oriented x3. Assessment/Plan Problem List: (1) Metastatic colon cancer to liver Status: Chronic Plan: 08/21/16: patient wishing to speak with hospice. hospice consult pending. Dx 2013, responded to chemo, palliative treatment delayed after hip fracture and transfer to rehab SNF. Pt admitted for severe anemia, responded to transfusion. Noted signs of progression, increase bilirubin, large liver, decrease KPS- reports she doesn't walk well, unable to manage at home herself. Discussed fu in [facility] for supportive treatment, check cbc and transfuse support, coordinate restaging plan to resume palliative treatment as pt desire. Anemia w/o sign of hemolysis. Concern about GI loss iron/blood. Assessment 75y/o woman with multiple medical problem, known to have metastatic colorectal cancer with metastatic disease to liver. Admitted for symptomatic anemia s/p transfusion. No sign of bleeding. Hgb improve. Plan 1. clear for d/c 2. await hospice consult 3. monitor CBC Malissa Ngo Aug 21, 2016 11:56
[2016-08-21 12:47] VITALS: BP 109/55; PULSE 94; RESP 18; TEMP 98; O2SAT 99
[2016-08-21] MEDS: oxyCODONE/ACETAMINOPHEN 5 MG/325 MG TAB PO PRN (13:19)
[2016-08-21 16:20] VITALS: BP 104/52; PULSE 97; RESP 20; TEMP 98.1; O2SAT 97
--- NOTE | 2016-08-21 16:33 | HHI.DS ---
Discharge Summary Admission Date Aug 20, 2016 at 15:20 Discharge Date: Aug 21, 2016 Admitting Diagnosis Symptomatic anemia (1) Symptomatic anemia Diagnosis: Principal (2) Colon carcinoma metastatic to liver Diagnosis: Principal (3) COPD (chronic obstructive pulmonary disease) Diagnosis: Principal (4) SOB (shortness of breath) Diagnosis: Principal (5) DVT (deep venous thrombosis) Diagnosis: Principal (6) HTN (hypertension) Diagnosis: Principal CBC/BMP: 08/20/16 0615 08/20/16 0615 Significant Findings Laboratory Tests Test 08/18/16 08/19/16 08/19/16 08/20/16 22:40 03:33 10:10 06:15 Red Blood Count 2.61 MIL/MM3 3.09 MIL/MM3 (4.00-5.30) (4.00-5.30) Hemoglobin 7.5 GM/DL 8.7 GM/DL 8.8 GM/DL (11.6-15.3) (11.6-15.3) (11.6-15.3) Hematocrit 22.6 % 26.1 % 26.5 % (35.0-46.0) (35.0-46.0) (35.0-46.0) Red Cell Distribution Width 17.3 % 17.3 % (11.6-17.2) (11.6-17.2) Platelet Count 143 TH/MM3 139 TH/MM3 (150-450) (150-450) Neutrophils % (Manual) 74 % (16-70) 81 % (16-70) Monocytes % 11 % (0-8) Toxic Vacuolation PRESENT (NONE SEEN) Platelet Estimate LOW (NORMAL) LOW (NORMAL) Target Cells 1+ (NORMAL) 1+ (NORMAL) Prothrombin Time 19.6 SEC (9.8-11.6) Activated Partial 35.0 SEC Thromboplast Time (24.3-30.1) Creatinine 1.08 MG/DL (0.50-1.00) Estimat Glomerular Filtration 60 ML/MIN (>89) 80 ML/MIN (>89) Rate Random Glucose 107 MG/DL 69 MG/DL (74-106) (74-106) Calcium Level 7.5 MG/DL 8.1 MG/DL (8.5-10.1) (8.5-10.1) Total Bilirubin 2.9 MG/DL 2.8 MG/DL (0.2-1.0) (0.2-1.0) Aspartate Amino Transf 99 U/L (15-37) (AST/SGOT) Alkaline Phosphatase 460 U/L (45-117) B-Type Natriuretic Peptide 277 PG/ML (0-100) Albumin 1.4 GM/DL (3.4-5.0) Direct Bilirubin 2.3 MG/DL (0.0-0.2) Iron Level 19 MCG/DL (50-170) Total Iron Binding Capacity 127 MCG/DL (250-450) Percent Iron Saturation 14.9 % (20-50) Lactate Dehydrogenase 660 U/L (84-246) Vitamin B12 Level GREATER THAN 2000 PG/ML (193-986) Lymphocytes % 8 % (9-44) Neutrophils # (Manual) 8.6 TH/MM3 (1.8-7.7) Imaging Last Impressions Abdomen/Pelvis CT 08/20/16 0000 Signed Impressions: Service Date/Time: Saturday, August 20, 2016 23:52 - CONCLUSION: 1. Progression in the patient's metastatic disease when compared to the prior study. Several new pulmonary nodules are seen within the lung bases as well as enlargement of the previously seen nodules. The metastatic disease to the liver has progressed significantly and now with widespread disease throughout the liver. 2. Moderate amount of ascites which is a new finding. 3. Tiny bilateral pleural effusions which are a new finding. 4. Cirrhosis. Emiliano Tafoya Jr., MD Chest X-Ray 08/18/16 2228 Signed Impressions: Service Date/Time: Thursday, August 18, 2016 22:40 - CONCLUSION: No acute disease. Emiliano Tafoya Jr., MD Hospital Course This is an unfortunate 75-year-old black female with significant past medical history of colon cancer with liver metastases was some palliative chemotherapy, COPD, status post fall with left hip fracture and pinning 2014, hypertension, arthritis, anemia, gastritis, DVT left leg on Xarelto. Patient was sent to the emergency room from [facility] for abnormal laboratory studies done at the facility. Patient was noted with hemoglobin of 7.1 and was sent for evaluation and possible blood transfusion. Patient did receive blood transfusion when she was admitted in May after hip fracture. She has chronic anemia. Her oncologist is Dr. Turner. Also history of gastritis for which she is on omeprazole. Patient is also on Xarelto for DVT left leg. Patient was evaluated in the emergency room, laboratory workup was completed. Hemoglobin was 7.5, hematocrit 22.6. She is noted with low iron stones, iron is 19. Patient is on by mouth iron replacement. AST is mildly elevated which is similar to previous findings. Chest x-ray did not reveal any acute findings. Pt admitted for: (1) Symptomatic anemia (2) Colon carcinoma metastatic to liver (3) COPD (chronic obstructive pulmonary disease) (4) SOB (shortness of breath) (5) DVT (deep venous thrombosis) (6) HTN (hypertension) During the course of the hospitalization, the following took place: 75-year-old black female with significant history of colon cancer with metastases to liver on palliative chemotherapy which is currently on hold, history of anemia and previous blood transfusions. Sent from [facility]term with hemoglobin of 7.1, complaining of dyspnea on exertion. -Given blood transfusions 1 unit 08/19/16, HH went up to baseline 8.8/26.5 -Continued with oral iron replacement -Continued with omeprazole for GI prophylaxis -Pt. seen by Dr. Garcia covering for Dr. Turner. Recommended OP work up for anemia, ? hemolytic anemia, T bili up (pt. asymptomatic. Poss GI loss. Cleared pt for discharge -However, DC held , heme + stools. Consulted Dr. Taylor. Dr. Taylor evaluated, CT abd done, results showed worsening progression of metastatic disease. No further recommendations for work up or treatment. Spoke to pt and recommended hospice, pt. agreed COPD with mild exacerbation-improved -Continue with oxygen at 2 L to keep sats greater than 90 -DuoNeb's 4 times a day- Chronic DVT left leg -Continue Xarelto Recent history of fall, left fracture with pinning -continue with PT HTN, stable -continued home meds Tachycardia -Cardizem held 08/19 due to marginal BP. BP was okay next day, RN gave, HR came down to 90. Continued with Xarelto for DVT prophylaxis Continued with Omeprazole and Zantac Consulted hospice for evaluation, pt. agreeable. Hospice met with patient. Care center accepted and had a bed Pt. discharged to hospice in stable condition. Pt Condition on Discharge: Fair Discharge Disposition: Hospice/Med Facility Discharge Instructions DIET: Follow Instructions for: Heart Healthy Diet Activities you can perform: Weight Bearing as Pierre Follow up Referrals: Gastroenterology - [address] TURNER PCP Follow-up New Medications: Ipratropium-Albuterol Neb (Duoneb) 0.5-2.5 Mg/3 Ml Neb 1 AMPULE NEB QID NEB Broncospasm Days 30 Ref 0 ML Continued Medications: Diltiazem CD 24 HR (Diltiazem CD 24 HR) 240 Mg Caper 240 MG PO DAILY #30 Ref 0 CAP Furosemide (Lasix) 20 Mg Tab 20 MG PO BID #60 Ref 0 TAB Gabapentin (Neurontin) 300 Mg Cap 300 MG PO TID #90 Ref 0 CAP Multiple Vitamins W/ Minerals (Multivitamin Adults) 1 Tab 1 TAB PO DAILY Nutritional Supplement Ref 0 TAB Omeprazole (Omeprazole) 20 Mg Tab 20 MG PO DAILY #30 Ref 0 TAB Oxycodone-Acetaminophen (Oxycodone-Acetaminophen) 10-325 mg Tab 1 TAB PO Q4H PRN PAIN #12 Ref 0 TAB (This prescription has been renewed) Polysaccharide Iron Complex (Poly-Iron 150) 150 Mg Cap 150 MG PO DAILY Nutritional Supplement #30 Ref 0 CAP Potassium Chloride ER (Potassium Chloride ER) 20 Meq Tab 20 MEQ PO DAILY Electrolyte Replacement #30 Ref 0 TAB Ranitidine (Zantac) 150 Mg Tab 150 MG PO BID Reduce Stomach Acid #60 Ref 0 TAB Rivaroxaban (Xarelto) 20 Mg Tab 20 MG PO DAILY Blood Clot Prevention Ref 0 TAB Aline Parks Aug 21, 2016 16:33
== END 2016-08-21 18:19 | disposition hospice, inpatient (51) | DRG 812 ==
LOC: NEPE 22:02 → NEDA 08-19 00:48 → NEPHCDU 08-19 04:22 → OBSVTOIN 08-20 15:20
PROVIDERS: ADMIT Specialist; ATTEND Specialist
PROC: 30233N1 Transfusion of Nonautologous Red Blood Cells into Peripheral Vein, Percutaneous Approach (ICD-10-PCS; principal; 2016-08-19)
DX: D64.9 Anemia, unspecified (principal); C78.7 Secondary malignant neoplasm of liver and intrahepatic bile duct; C19 Malignant neoplasm of rectosigmoid junction; I82.502 Chronic embolism and thrombosis of unspecified deep veins of left lower extremity; I10 Essential (primary) hypertension; K92.1 Melena; J44.1 Chronic obstructive pulmonary disease with (acute) exacerbation; R00.0 Tachycardia, unspecified; I25.10 Atherosclerotic heart disease of native coronary artery without angina pectoris; Z51.5 Encounter for palliative care; E78.5 Hyperlipidemia, unspecified; K21.9 Gastro-esophageal reflux disease without esophagitis; G47.30 Sleep apnea, unspecified; Z79.01 Long term (current) use of anticoagulants; Z95.5 Presence of coronary angioplasty implant and graft; Z87.891 Personal history of nicotine dependence; Z92.21 Personal history of antineoplastic chemotherapy
CPT/HCPCS: 36430; 71010; 74177; 80048; 80053; 82247; 82248; 82272; 82607; 82728; 82746; 83010; 83540; 83550; 83615; 83690; 83880; 85007; 85014; 85018; 85027; 85044; 85060; 85610; 85730; 86850; 86880; 86900; 86901; 86920; 93005; 94640; 94664; G0378; J1940; J2405; J7050; P9016; Q9963; Q9967